=== PATIENT | male | born 1950 | race Caucasian/White ===

== ENCOUNTER 2017-03-04 21:36 | Inpatient (IN) | payer MEDICARE, OTHER ==
[~2017-03-04] VITALS: Ht 175.3 cm; Wt 79.2 kg
--- NOTE | 2017-03-04 21:36 | NUR ---
Arrived to ED to room 2A for possible tramadol overdosage.BIB paramedics. Pt is awake and lethargic.VS BP 90's/50's. HR 86, satting 98% RA, afebrile,
[2017-03-04] MEDS ORDERED: NALOXONE HCL 0.4 MG/ML AMPUL IV STA (21:39)
[2017-03-04] MEDS ORDERED: IV NORMAL SALINE 1000 ML BAG IV ONE ×3 (21:45→23:15)
[2017-03-04] MEDS ORDERED: NALOXONE HCL 0.4 MG/ML AMPUL ONE (21:50)
--- NOTE | 2017-03-04 22:22 | NUR ---
BP starting to go down, place pt in a trendelenburg position and recheck BP.Reinserted new IV, previous IV was not working properly, switched IV fluids to new IV LFA g 20.
[2017-03-04 22:23] LABS: CALCIUM 9.3 mg/dL (8.5-10.1); CARBON DIOXIDE 26 mmol/L (21-32); CHLORIDE 102 mmol/L (98-107); GFR 38 mL/min (>60); GLUCOSE 137 mg/dL (74-106); SODIUM SERUM 141 mmol/L (136-145); UREA NITROGEN, BLOOD 17 mg/dL (7-18)
[2017-03-04 22:24] LABS: CREATININE 1.8 mg/dL (0.6-1.3)
[2017-03-04 22:25] LABS: BASOPHILS # (AUTO) 0.1 K/uL (0.0-8.0); EOSINOPHILS # (AUTO) 0.1 K/uL (0.0-0.7); EOSINOPHILS % (AUTO) 0.9 % (0.0-7.0); HEMATOCRIT 54.1 % (40-50); HEMOGLOBIN 18.3 G/DL (14.0-18.0); LYMPHOCYTES % (AUTO) 7.3 % (20.5-51.5); MEAN CORPUSCULAR HEMOGLOBIN 30.4 UUG (27.0-31.0); MEAN CORPUSCULAR HGB CONC 34 g/dL (32.0-37.0); MONOCYTES # (AUTO) 0.9 K/UL (0.1-1.30); MONOCYTES % (AUTO) 6.4 % (0.0-11.0); NEUTROPHILS # (AUTO) 11.2 K/UL (1.8-8.9); NEUTROPHILS % (AUTO) 84.4 % (38.5-71.5); PLATELET COUNT (AUTO) 185 K/UL (150-450); RED BLOOD CELL COUNT(AUTO) 6.01 MIL/UL (4.7-6.1); RED CELL DISTRIBUTION WIDTH 12.6 % (11.5-14.5); WHITE BLOOD COUNT (AUTO) 13.3 K/UL (4.0-11.2)
[2017-03-04 22:26] LABS: ETHANOL < 3 MG/DL (0-0)
[2017-03-04] MEDS ORDERED: NALOXONE HCL 0.4 MG/ML AMPUL IV ONE ×3 (22:30→23:15)
--- NOTE | 2017-03-04 22:30 | NUR ---
Continue BP to be on the low side, MD is aware.
[2017-03-04 22:38] LABS: ALANINE AMINOTRANSFERASE 22 U/L (16-63); ALBUMIN 4.2 g/dL (3.4-5.0); ALKALINE PHOSPHATASE 73 U/L (50-136); ASPARTATE AMINOTRANSFERASE 18 U/L (15-37); BILIRUBIN,DIRECT 0.1 mg/dL (0.0-0.2); BILIRUBIN,TOTAL 0.4 mg/dL (0.2-1.0); TOTAL PROTEIN, SERUM 7.5 g/dL (6.4-8.2)
[2017-03-04 22:40] LABS: ACETAMINOPHEN < 2.0 ug/mL (10-30)
--- NOTE | 2017-03-04 22:40 | NUR ---
POISON CONTROL ID NO [id number].
[2017-03-04] MEDS ORDERED: NALOXONE 2 MG/2 ML SYRINGE ONE ×3 (22:47→23:26)
--- NOTE | 2017-03-04 23:20 | NUR ---
Intubated patient, pt was unresponsive, was snoring prior however Narcan was not taking effect, BP is going down continuously.Dopamine started with 5mcg/kg/min.Succinylcholine 100mg/IVP given as ordered.Bilateral soft restraints in place as ordered.
--- NOTE | 2017-03-04 23:20 | NUR ---
Indwelling olivera catheter in place as ordered.Output yellow pink tinge (possibly from trauma), good amount coming out.
[2017-03-04] MEDS: DOPamine IV DRIP 250 ML IV PRN (23:30)
--- NOTE | 2017-03-04 23:30 | NUR ---
Propofol administered started 10mcg/kg/min.
[2017-03-04] MEDS ORDERED: DOPamine IV DRIP 250 ML ONE (23:35)
--- NOTE | 2017-03-04 23:35 | NUR ---
Called to ED for intubation. Pt intubated by ED MD MAJANO with 7.5 ETT at approx. 23 cm at the lip. Pt subsequently placed on Viasys Martinez on settings of AC 16, VT 600, PEEP+5 and ODE9=213%. Pt to be monitored throughout the shift. BVM at bedside. No resp. distress noted at this time.
[2017-03-04] MEDS ORDERED: SUCCINYLCHOLINE CHLORIDE 200 MG/10 ML VIAL IV ONE (23:45)
--- NOTE | 2017-03-04 23:45 | NUR ---
NGT inserted , CXR done to validate ET and NGT placement.
--- NOTE | 2017-03-04 23:45 | NUR ---
Completed 3L of NS bolus with urinary output of 1800mls.
[2017-03-04] MEDS ORDERED: PROPOFOL 100 ML ONE (23:51)
[2017-03-05] VITALS (88 sets, daily range): BP systolic 83–151; BP diastolic 53–101
[2017-03-05] MEDS ORDERED: ALPR1TAB7 (00:08)
[2017-03-05] MEDS ORDERED: LISI10TA5 (00:08)
--- NOTE | 2017-03-05 00:10 | NUR ---
UNABLE TO GET ALL NAMES OF MEDS.SPOKE WITH FAMILY THEY WILL GET AND BRING IN.
[2017-03-05] MEDS ORDERED: PROPOFOL 100 ML IV ONE (00:24)
--- NOTE | 2017-03-05 00:30 | NUR ---
Wheeled pt to CT w/ tap and die maker technician and R with portable php lamp developer and mechanical ventilator. Monitored pt constantly.
[2017-03-05 00:58] LABS: THYROID STIMULATING HORMONE 6.254 mIU/mL (0.358-3.740)
[2017-03-05 00:58] LABS: *BILIRUBIN,URIN NEGATIVE (NEGATIVE); *BLOOD, URINE Trace-lysed (NEGATIVE); *CLARITY,URINE SLIGHTLY CLOUDY (CLEAR); *COLOR,URINE YELLOW (YELLOW); *KETONES,URINE 1+ (NEGATIVE); *PROTEIN,URINE 1+ (NEGATIVE); *UROBILINOGEN,URINE 0.2 E.U./dl (NORMAL); LEUKOCYTE ESTERASE ,URINE NEGATIVE (NEGATIVE); NITRITE, URINE NEGATIVE (NEGATIVE); PH,URINE 5.5 (5.0-8.0); UGLUCOSE NEGATIVE (NEGATIVE)
[2017-03-05 01:08] LABS: *AMPHETAMINE, URINE NEGATIVE (NEGATIVE); *BARBITURATE, URINE NEGATIVE (NEGATIVE); *CANNABINOID, URINE POSITIVE (NEGATIVE); *COCCAINE, URINE NEGATIVE (NEGATIVE); *OPIATE, URINE POSITIVE (NEGATIVE); *PHENCYCLIDINE SCREEN,URINE NEGATIVE (NEGATIVE); BACTERIA,URINE FEW /HPF (NONE SEEN); SQUAMOUS EPITHELIAL CELL,UR FEW /HPF (NONE SEEN)
[2017-03-05 01:09] LABS: URINE AMORPHOUS URATE PRESENT /HPF
--- NOTE | 2017-03-05 01:10 | NUR ---
Report given to GUSTAVO Machuca. Urinary output 1800mls via olivera catheter
--- NOTE | 2017-03-05 01:40 | NUR ---
Blood sugar 132mg/dl
[2017-03-05 01:46] LABS: ABG BASE EXCESS -1.3 mmol/L; ABG HCO3 21.4 mmol/L; ABG PCO2 31.5 mmHg (35.0-45.0); ABG PO2 440.8 mmHg (75.0-100.0); ABG SITE RIGHT RADIAL; COHb 0.6 % (0.5-1.5); MetHb 0.4 % (0.0-1.5); O2Hb 98.7 % (94.0-97.0); VENT MODE VENT - A/C; VT, ABG 600 mL
--- NOTE | 2017-03-05 01:55 | NUR ---
Transferred pt to CCU bed 3 via maureen with RT Case with portable director process improvement and portable oxygen. Continued on mechanical ventilator rate 16, TV 600, Fio2 100% initial and Peep 5.Saturation 100%.VS stable.Continued on Dopamine 5mcg/kg/min and Propofol 25mcg/kg/min.
[2017-03-05] MEDS ORDERED: LORAZEPAM 2 MG/1 ML VIAL IV PRN (02:00)
--- NOTE | 2017-03-05 02:07 | NUR ---
PT WITH 02 TRANSPORT FROM ER, WITH 100% AMBU BAG TO CCU #3 APPROX. 0145 , PT PLACED BACK ON LI VENT , WITH VENT SETTINGS, A/C 16, VT 600ML, 100%, PEEP 5, THEN TITRATE FIO2 TO 50% APPROX. @ 0200, BASED ON ABG RESULTS, PT IS ALSO SEDATED, ALL ALARMS OK, AMBU BAG AT BEDSIDE, WILL MONITOR CLOSELY. Marilu PRO RCP Addendum: 03/05/17 at 0211 by GAYATHRI PRO RT Amended: Links added.
--- NOTE | 2017-03-05 02:10 | NUR ---
Accompanied pt's significant other and friend to CCU.
--- NOTE | 2017-03-05 04:30 | NUR ---
REQUESTED BY , NOTIFIED POISON CONTROL: THEY DECLINED MORE NARCAN.
[2017-03-05] MEDS ORDERED: IV D5/ 0.9% NACL 1,000 ML IV PRN (05:00)
[2017-03-05 05:48] LABS: BASOPHILS % (AUTO) 0.3 % (0.0-2.0); EOSINOPHILS # (AUTO) 0.1 K/uL (0.0-0.7); EOSINOPHILS % (AUTO) 0.9 % (0.0-7.0); HEMATOCRIT 48.9 % (40-50); HEMOGLOBIN 17.1 G/DL (14.0-18.0); LYMPHOCYTES # (AUTO) 1.6 K/UL (0.8-4.8); MEAN CORPUSCULAR HEMOGLOBIN 31.2 UUG (27.0-31.0); MEAN CORPUSCULAR HGB CONC 35 g/dL (32.0-37.0); MEAN CORPUSCULAR VOLUME 89.3 FL (82.0-92.0); MONOCYTES # (AUTO) 0.4 K/UL (0.1-1.30); MONOCYTES % (AUTO) 3.8 % (0.0-11.0); NEUTROPHILS # (AUTO) 7.3 K/UL (1.8-8.9); PLATELET COUNT (AUTO) 192 K/UL (150-450); RED BLOOD CELL COUNT(AUTO) 5.48 MIL/UL (4.7-6.1); RED CELL DISTRIBUTION WIDTH 12.9 % (11.5-14.5); WHITE BLOOD COUNT (AUTO) 9.4 K/UL (4.0-11.2)
[2017-03-05 06:05] LABS: CALCIUM 8.9 mg/dL (8.5-10.1); CREATININE 1.2 mg/dL (0.6-1.3); MAGNESIUM 2.1 mg/dL (1.8-2.4); PHOSPHOROUS 3.2 mg/dL (2.5-4.9); POTASSIUM 3.7 mmol/L (3.5-5.1)
[2017-03-05 06:32] LABS: BAND % (MANUAL) 1 % (0-10); LYMPHOCYTES % (MANUAL) 13 % (20-40); MONOCYTES % (MANUAL) 8 % (2-10); NEUTROPHILS % (MANUAL) 78 % (42-75); PLATELET ESTIMATE ADEQUATE
--- NOTE | 2017-03-05 07:45 | NUR ---
A call from Poison control center and report given to Taylor, she recommended to get a CPK total. notified and lab ordered as required by poison control.
[2017-03-05] MEDS ORDERED: ACETAMINOPHEN 650 MG SUPP.RECT RC PRN (08:00)
[2017-03-05] MEDS: PROPOFOL 100 ML IV PRN ×2 (08:14→23:04)
[2017-03-05] MEDS: PIPERACILLIN/TAZOBACTAM/D5W 3.375 G in PREMIXED 1 EACH IV SCH ×3 (08:49→22:06)
[2017-03-05] MEDS: POTASSIUM CHLORIDE 20 MEQ in IV D5/ 0.9% NACL 1,000 ML IV PRN (08:51)
[2017-03-05] MEDS: PANTOPRAZOLE SODIUM 40 MG VIAL IV SCH (08:53)
[2017-03-05 09:11] LABS: ABG BASE EXCESS 1.1 mmol/L; ABG PCO2 26.9 mmHg (35.0-45.0); ABG PO2 122.3 mmHg (75.0-100.0); ABG SITE RIGHT RADIAL; ABG TOTAL HEMOGLOBIN 17.4 G/dL (13.5-18.0); COHb 0.9 % (0.5-1.5); MetHb 0.3 % (0.0-1.5); O2Hb 97.7 % (94.0-97.0); VENT MODE VENT - A/C; VT, ABG 600 mL
[2017-03-05] MEDS: LEVOFLOXACIN 500 MG/D5W 500 MG in PREMIXED 1 EACH IV SCH (09:23)
--- NOTE | 2017-03-05 13:33 | NUR ---
Dr. Mitchell at bedside examining patient and updating pt's partner who remains at bedside.
--- NOTE | 2017-03-05 13:50 | NUR ---
called earlier at bedside praying with pt's family who remain at bedside.
--- NOTE | 2017-03-05 14:00 | NUR ---
Dr. Good at bedside assessing patient, report given vent change orders received.
[2017-03-05] MEDS: DOPamine IV DRIP 250 ML IV PRN ×2 (14:27→23:07)
--- NOTE | 2017-03-05 14:30 | NUR ---
Vent setting changed to A/C 14, TV 500, Peep + 5. and keep saturations above 92%. as ordered by . Orders carried by RT Alas.
--- NOTE | 2017-03-05 15:42 | NUR ---
CHANGED VENT SETTINGS TO AC 14, Vt 500, +5, FIO2 40% PER MD ORDERS. TOLERATING VENT SETTINGS WELL WITH NO SOB NOTED. 7.5 ETT IS PATENT AND SECURED WITH ETT IRIZARRY LEFT SIDE APPROX 23 CM AT THE LIP. HAS MINIMAL AMOUNT OF WHITE THIN SECRETIONS. ORAL CARE DONE. HME CHANGED. ALARMS ARE ON AND AUDIBLE, BVM AT BEDSIDE. WILL CONTINUE TO MONITOR.
--- NOTE | 2017-03-05 19:28 | NUR ---
Pt rec'd on Martinez settings AC 14, VT 500, PEEP+5 and FIO2-40%. No resp. distress noted. 7.5 ETT is patent and secure a approx. 23cm at the left lip. Pt to be monitored throughout the shift and PRN SX. Oral care done. BVM at bedside. Martinez alarm parameters have been checked and remain audible.
[2017-03-06] VITALS (92 sets, daily range): BP systolic 77–172; BP diastolic 57–96
[2017-03-06] MEDS: POTASSIUM CHLORIDE 20 MEQ in IV D5/ 0.9% NACL 1,000 ML IV PRN ×2 (00:22→14:47)
--- NOTE | 2017-03-06 05:05 | NUR ---
accucheck noted as user error
[2017-03-06 05:13] LABS: BASOPHILS # (AUTO) 0.1 K/uL (0.0-8.0); BASOPHILS % (AUTO) 0.8 % (0.0-2.0); EOSINOPHILS # (AUTO) 0.2 K/uL (0.0-0.7); EOSINOPHILS % (AUTO) 2.3 % (0.0-7.0); HEMATOCRIT 47.3 % (40-50); HEMOGLOBIN 16.1 G/DL (14.0-18.0); LYMPHOCYTES # (AUTO) 1.2 K/UL (0.8-4.8); LYMPHOCYTES % (AUTO) 11.8 % (20.5-51.5); MEAN CORPUSCULAR HEMOGLOBIN 30.7 UUG (27.0-31.0); MEAN CORPUSCULAR HGB CONC 34 g/dL (32.0-37.0); MEAN CORPUSCULAR VOLUME 90.3 FL (82.0-92.0); MONOCYTES # (AUTO) 0.9 K/UL (0.1-1.30); MONOCYTES % (AUTO) 8.4 % (0.0-11.0); NEUTROPHILS # (AUTO) 7.9 K/UL (1.8-8.9); NEUTROPHILS % (AUTO) 76.7 % (38.5-71.5); PLATELET COUNT (AUTO) 167 K/UL (150-450); RED BLOOD CELL COUNT(AUTO) 5.23 MIL/UL (4.7-6.1); RED CELL DISTRIBUTION WIDTH 12.9 % (11.5-14.5); WHITE BLOOD COUNT (AUTO) 10.3 K/UL (4.0-11.2)
--- NOTE | 2017-03-06 05:18 | NUR ---
Patient remains on Martinez at this time with no changes made to the ventilator settings. No respiratory distress noted throughout the shift. Patient was routinely suctioned and was administered oral care. 7.5 ETT remains patent and secure at approx. 23cm now at the left lip. Resusc. bag is at bedside. Martinez alarm parameters have been checked and remain audible at this time.
[2017-03-06 05:28] LABS: BILIRUBIN,TOTAL 0.7 mg/dL (0.2-1.0); CALCIUM 8.2 mg/dL (8.5-10.1); CREATININE 1.2 mg/dL (0.6-1.3); MAGNESIUM 1.7 mg/dL (1.8-2.4); POTASSIUM 3.7 mmol/L (3.5-5.1); TOTAL PROTEIN, SERUM 6.1 g/dL (6.4-8.2)
[2017-03-06] MEDS: PIPERACILLIN/TAZOBACTAM/D5W 3.375 G in PREMIXED 1 EACH IV SCH ×3 (05:33→21:41)
[2017-03-06] MEDS: PANTOPRAZOLE SODIUM 40 MG VIAL IV SCH (06:08)
--- NOTE | 2017-03-06 07:38 | NUR ---
PATIENT RECEIVED ON CONTINUOUS MECHANICAL VENTILATION WITH ETT PROPERLY SECURED AND INTACT. AIRWAY PATENT. PATIENT TOLERATING PRESCRIBED VENTILATOR SETTINGS FINE SHOWING NO EVIDENCE OF RESPIRATORY DISTRESS. BREATH SOUNDS RHONCHI. PRN ENDOTRACHEAL SUCTIONING PERFORMED AND HAD MODERATE AMOUNT OF OFF WHITE YELLOWISH SEMI THICK SECRETIONS. PATIENT POSITIONED SEMI ANGLIN WITH HEAD OF THE BED ELEVATED 35-45 DEGREE ANGLE. VENT ALARMS SET,AUDIBLE, AND WORKING. VENT PLUGGED INTO RED OUTLET. PT APPEARS COMFORTABLE. ORAL CARE DONE.
[2017-03-06] MEDS: DOPamine IV DRIP 250 ML IV PRN ×2 (08:29→17:56)
[2017-03-06] MEDS: PROPOFOL 100 ML IV PRN ×2 (08:30→18:02)
[2017-03-06] MEDS: LEVOFLOXACIN 500 MG/D5W 500 MG in PREMIXED 1 EACH IV SCH (09:00)
--- NOTE | 2017-03-06 11:25 | NUR ---
seen by dr sheffield. orders received. Addendum: 03/06/17 at 1125 by ANUM HARDEN RN Amended: Links added.
[2017-03-06] MEDS: MAGNESIUM SULFATE/D5W 100 ML IV SCH ×2 (12:40→13:56)
[2017-03-06] MEDS: MORPHINE SULFATE 2 MG/1 ML DISP.SYRIN IV PRN (12:42)
[2017-03-06] MEDS: ENOXAPARIN SODIUM 40 MG/0.4 ML DISP.SYRIN SQ SCH (12:52)
--- NOTE | 2017-03-06 13:00 | NUR ---
magnesium 1.7. replaced qith 2 gms of magnesium sulfate Addendum: 03/06/17 at 1 by ANUM HARDEN RN Amended: Links added.
--- NOTE | 2017-03-06 18:37 | NUR ---
seen by dr shukla. orders received, Addendum: 03/06/17 at 1837 by ANUM HARDEN RN Amended: Links added.
--- NOTE | 2017-03-06 19:00 | NUR ---
Report received from GUSTAVO Costa Addendum: 03/06/17 at 2020 by THEODORA HENRY RN cher lazcano
--- NOTE | 2017-03-06 19:00 | NUR ---
Received report from GUSTAVO Costa
--- NOTE | 2017-03-06 19:10 | NUR ---
Pt received on Continuous mechanical ventilation via 7.5 ETT secured at 23cm lip line. ETT on Left side of mouth. [place] Fast is in place. Good skin integrity noted to area of [place] Fast placement. Pt is on Martinez vent with ordered settings of A/C-12, VT-500, PEEP+5, FIO2-40%. Pt tolerating vent settings well. SpO2-100% No signs or symptoms of respiratory distress noted. Sxn'd and lavaged, small amts of dark secretions. Vent alarm parameters checked, on and audible. Vent plugged into red emergency outlet. Bag/valve/mask at bedside. HME changed. Oral care done. ETT moved to Right side of mouth. Will continue to monitor
--- NOTE | 2017-03-06 20:00 | NUR ---
Assessment done, remained on mechanical ventilator tv 500, Fi02 40% peep of 5. For CPAP tomorrow am.Sedated on Propofol 20mcg/kg/min.NSR on court monitor, Skin is intact, prone for pressure ulcer, on 1st step mattress, turned and repositioned, Morgan catheter in place as well NGT, remained NPO. IV fluids: D5 NS w/ 20 KCL at 80 mls/hr running via central line at Rt IJ.DVT pumps running and off load bilateral foot at all times.Continue monitor.
--- NOTE | 2017-03-06 22:00 | NUR ---
Antibiotic given as prescribed.VS stable.
[2017-03-07] VITALS (66 sets, daily range): BP systolic 80–157; BP diastolic 53–105
[2017-03-07] MEDS: PROPOFOL 100 ML IV PRN (03:15)
[2017-03-07] MEDS: POTASSIUM CHLORIDE 20 MEQ in IV D5/ 0.9% NACL 1,000 ML IV PRN ×2 (03:40→19:00)
[2017-03-07 05:30] LABS: BASOPHILS % (AUTO) 0.3 % (0.0-2.0); EOSINOPHILS # (AUTO) 0.4 K/uL (0.0-0.7); EOSINOPHILS % (AUTO) 4.1 % (0.0-7.0); HEMATOCRIT 43.9 % (40-50); HEMOGLOBIN 15.2 G/DL (14.0-18.0); LYMPHOCYTES % (AUTO) 10.8 % (20.5-51.5); MEAN CORPUSCULAR HGB CONC 35 g/dL (32.0-37.0); MEAN CORPUSCULAR VOLUME 89.7 FL (82.0-92.0); MONOCYTES # (AUTO) 0.7 K/UL (0.1-1.30); MONOCYTES % (AUTO) 8.2 % (0.0-11.0); NEUTROPHILS # (AUTO) 6.8 K/UL (1.8-8.9); NEUTROPHILS % (AUTO) 76.6 % (38.5-71.5); PLATELET COUNT (AUTO) 134 K/UL (150-450); RED CELL DISTRIBUTION WIDTH 13.1 % (11.5-14.5); WHITE BLOOD COUNT (AUTO) 8.9 K/UL (4.0-11.2)
[2017-03-07 05:31] LABS: CALCIUM 8.2 mg/dL (8.5-10.1); CREATININE 0.9 mg/dL (0.6-1.3); MAGNESIUM 1.7 mg/dL (1.8-2.4); POTASSIUM 3.5 mmol/L (3.5-5.1)
[2017-03-07] MEDS: PIPERACILLIN/TAZOBACTAM/D5W 3.375 G in PREMIXED 1 EACH IV SCH ×3 (05:36→21:55)
--- NOTE | 2017-03-07 06:00 | NUR ---
Central line dressing changed.
--- NOTE | 2017-03-07 06:00 | NUR ---
Overall pt has been intermittently having hypotensive issues as being weaned off from dopamine on an increments of .5mcg-1 mcg/min. Currently on 7 mcg/min. Propofol is stabled at 15mcg/min. Pt remained sedated.Turned and reposition per hospital protocol.
[2017-03-07] MEDS: PANTOPRAZOLE SODIUM 40 MG VIAL IV SCH (06:11)
--- NOTE | 2017-03-07 07:00 | NUR ---
report received from Gopi Addendum: 03/07/17 at 1644 by ANUM HARDEN RN Amended: Links added.
--- NOTE | 2017-03-07 07:00 | NUR ---
Report to GUSTAVO Costa
[2017-03-07] MEDS ORDERED: NORMAL SALINE FLUSH 10 ML DISP.SYRIN IV PRN (07:45)
[2017-03-07] MEDS: LEVOFLOXACIN 500 MG/D5W 500 MG in PREMIXED 1 EACH IV SCH (07:47)
--- NOTE | 2017-03-07 08:00 | NUR ---
placed on sedation vacation. placed on cpap psv 8 fio2 40%. remains on dopamine drip . IV fluid infusing at 80ml/hr. PICC line intact. all ports flushed with saline and open Addendum: 03/07/17 at 1640 by ANUM HARDEN RN Amended: Links added.
--- NOTE | 2017-03-07 08:00 | NUR ---
placed on sedation vacation. placed on cpap psv 8 fio2 40%. remains on dopamine drip . IV fluid infusing at 80ml/hr Addendum: 03/07/17 at 1640 by ANUM HARDEN RN Amended: Links added.
[2017-03-07] MEDS: DOPamine IV DRIP 250 ML IV PRN (08:53)
[2017-03-07] MEDS: MAGNESIUM SULFATE/D5W 100 ML IV SCH ×2 (09:10→10:10)
--- NOTE | 2017-03-07 09:10 | NUR ---
magnesium sulfate total 2 gms started for serum level of 1.7 Addendum: 03/07/17 at 0932 by ANUM HARDEN RN Amended: Links added.
[2017-03-07] MEDS: MORPHINE SULFATE 2 MG/1 ML DISP.SYRIN IV PRN ×2 (09:11→15:46)
--- NOTE | 2017-03-07 09:11 | NUR ---
medicated for generalized discomfort.patient restless and has bilateral wrist restraints Addendum: 03/07/17 at 1631 by ANUM HARDEN RN Amended: Links added. Addendum: 03/07/17 at 1633 by ANUM HARDEN RN Amended: Links added.
--- NOTE | 2017-03-07 09:30 | NUR ---
Resident was endorsed on Continuous mechanical ventilation via 7.5 ETT secured at 23cm lip line. [place] Fast is in place, good skin integrity noted to area of placement. Pt is on Martinez vent with ordered settings of A/C-12, VT-500, PEEP+5, FIO2-40%. Pt tolerating vent settings well. No signs or symptoms of respiratory distress noted. Changed to CPAP pressure support of 8 with 40% Fio2, RN Julissa aware. No complication noted. Vent alarm parameters checked, on and audible. Vent plugged into red emergency outlet. Bag/valve/mask at bedside. HME changed. Oral care rendered. Will continue to monitor
--- NOTE | 2017-03-07 10:00 | NUR ---
abgs drawn while on cpap psv8 and propofol at 15mcg/kg.min Addendum: 03/07/17 at 1636 by ANUM HARDEN RN Amended: Links added. Addendum: 03/07/17 at 1640 by ANUM HARDEN RN Amended: Links added.
[2017-03-07 10:25] LABS: ABG BASE EXCESS -3.3 mmol/L; ABG HCO3 20.3 mmol/L; ABG PCO2 32.7 mmHg (35.0-45.0); ABG PH 7.411 (7.350-7.450); ABG PO2 130.9 mmHg (75.0-100.0); ABG SITE LEFT RADIAL; ABG TOTAL HEMOGLOBIN 15.1 G/dL (13.5-18.0); COHb 1.3 % (0.5-1.5); MetHb 0.3 % (0.0-1.5); O2Hb 97.5 % (94.0-97.0); VENT MODE CPAP
--- NOTE | 2017-03-07 10:35 | NUR ---
seen by dr clark orders received Addendum: 03/07/17 at 1629 by ANUM HARDEN RN Amended: Clara added. Addendum: 03/07/17 at 1631 by ANUM HARDEN RN Amended: Clara added. Addendum: 03/07/17 at 1633 by ANUM HARDEN RN Amended: Links added.
[2017-03-07] MEDS ORDERED: DC PROPOFOL ONCE EXTUBATED XX PRN (10:40)
--- NOTE | 2017-03-07 10:40 | NUR ---
Patient was tolerating CPAP very well. ABG results indicative of successful weaning. Patient extubated and placed on 5LpmO2 via simple mask per MD Jansen, with the assistance of Fermin GLORIA. Spo2 remains at 100%. Julissa CHEN informed. Will titrate as needed. No signs or symptoms of respiratory distress noted. Ambu bag at bedside. Will continue to monitor.
[2017-03-07] MEDS ORDERED: ALBUTEROL SULFATE 2.5 MG/3 ML NEBU NEB PRN (10:45)
--- NOTE | 2017-03-07 10:45 | NUR ---
extubated and placed on 5l mask per RT Fermin and RT Sandrita. Patient was suctioned first prior to extubation. Patient is restless, not able to follow commands. wrist restraints. propofol dcd prior to extubation. remains on dopamine drip to keep sbp >90 Addendum: 03/07/17 at 1239 by ANUM HARDEN RN Amended: Links added.
[2017-03-07] MEDS: POTASSIUM CHLORIDE 50 ML IV SCH ×2 (11:45→12:12)
--- NOTE | 2017-03-07 11:50 | NUR ---
A Call from Poison Control, spoke with MR. Ibarra questions answered.
[2017-03-07] MEDS: ENOXAPARIN SODIUM 40 MG/0.4 ML DISP.SYRIN SQ SCH (12:10)
--- NOTE | 2017-03-07 12:40 | NUR ---
seen by dr andonyan. md filomena jaimes is covering patient from today Addendum: 03/07/17 at 1628 by ANUM HARDEN RN Amended: Links added. Addendum: 03/07/17 at 1629 by ANUM HARDEN RN Amended: Links added. Addendum: 03/07/17 at 1631 by ANUM HARDEN RN Amended: Clara added. Addendum: 03/07/17 at 1633 by ANUM HARDEN RN Amended: Links added.
[2017-03-07] MEDS: LORAZEPAM 2 MG/1 ML VIAL IV PRN (12:48)
--- NOTE | 2017-03-07 12:48 | NUR ---
medicated for restlessness Addendum: 03/07/17 at 1635 by ANUM HARDEN RN Amended: Clara added. Addendum: 03/07/17 at 1636 by ANUM HARDEN RN Amended: Links added. Addendum: 03/07/17 at 1640 by ANUM HARDEN RN Amended: Links added.
--- NOTE | 2017-03-07 13:00 | NUR ---
seen by dr Hummel. orders received. Addendum: 03/07/17 at 1627 by ANUM HARDEN RN Amended: Clara added. Addendum: 03/07/17 at 1628 by ANUM HARDEN RN Amended: Links added. Addendum: 03/07/17 at 1629 by ANUM HARDEN RN Amended: Links added. Addendum: 03/07/17 at 1631 by ANUM HARDEN RN Amended: Links added. Addendum: 03/07/17 at 1633 by ANUM HARDEN RN Amended: Links added.
--- NOTE | 2017-03-07 15:45 | NUR ---
medicated for generalized discomfort. now on bilateral ankle restraints Addendum: 03/07/17 at 1633 by ANUM HARDEN RN Amended: Links added.
[2017-03-07] MEDS: NORMAL SALINE FLUSH 10 ML DISP.SYRIN IV SCH ×2 (15:47→21:55)
--- NOTE | 2017-03-07 19:10 | NUR ---
MAGALYS received from Anum CHEN. Addendum: 03/07/17 at 1933 by ANUM HARDEN RN Amended: Links added.
--- NOTE | 2017-03-07 19:30 | NUR ---
Report received. Patient arouses to name, doesn't follow commands. Speech garbled. MARINA espana. With soft restraints to wrists and legs for safety. Monitored closely. O2 2L NC post extubation. Sat above 94%. NAD noted. Addendum: 03/08/17 at 0153 by SARIKA SAINI RN Amended: Links added. Addendum: 03/08/17 at 0156 by SARIKA SAINI RN Amended: Links added.
--- NOTE | 2017-03-07 20:30 | NUR ---
Patient's friends visited. There were times that patient's words are understandable and patient was emotional according to friends. VS stable. Addendum: 03/08/17 at 0159 by SARIKA SAINI RN Amended: Links added. Addendum: 03/08/17 at 0201 by SARIKA SAINI RN Amended: Links added.
[2017-03-08] VITALS (16 sets, daily range): BP systolic 129–175; BP diastolic 60–99
--- NOTE | 2017-03-08 | NUR ---
Am bath given. Patient able to tell RN his name but no answers to other questions. Moves all extremities well. Addendum: 03/08/17 at 0201 by SARIKA SAINI RN Amended: Links added.
--- NOTE | 2017-03-08 05:00 | NUR ---
Patient extremely restless, legs over rail despite 4 point soft restraints. BP 170's systole. Medicated with Ativan IV. Addendum: 03/08/17 at 0621 by SARIKA SAINI RN Amended: Links added.
[2017-03-08] MEDS: NORMAL SALINE FLUSH 10 ML DISP.SYRIN IV SCH ×3 (05:03→22:12)
[2017-03-08] MEDS: LORAZEPAM 2 MG/1 ML VIAL IV PRN (05:03)
[2017-03-08] MEDS: PIPERACILLIN/TAZOBACTAM/D5W 3.375 G in PREMIXED 1 EACH IV SCH ×3 (05:15→21:12)
[2017-03-08 05:35] LABS: CALCIUM 8.4 mg/dL (8.5-10.1); CREATININE 0.9 mg/dL (0.6-1.3); MAGNESIUM 1.5 mg/dL (1.8-2.4); PHOSPHOROUS 2.5 mg/dL (2.5-4.9); POTASSIUM 3.8 mmol/L (3.5-5.1)
--- NOTE | 2017-03-08 06:00 | NUR ---
Still mildly restless on and off after Ativan.
[2017-03-08 06:12] LABS: BASOPHILS % (AUTO) 0.3 % (0.0-2.0); EOSINOPHILS # (AUTO) 0.4 K/uL (0.0-0.7); EOSINOPHILS % (AUTO) 6.6 % (0.0-7.0); HEMATOCRIT 40.7 % (40-50); HEMOGLOBIN 14.4 G/DL (14.0-18.0); LYMPHOCYTES # (AUTO) 1.4 K/UL (0.8-4.8); LYMPHOCYTES % (AUTO) 21.2 % (20.5-51.5); MEAN CORPUSCULAR HEMOGLOBIN 31.7 UUG (27.0-31.0); MEAN CORPUSCULAR HGB CONC 35 g/dL (32.0-37.0); MEAN CORPUSCULAR VOLUME 89.7 FL (82.0-92.0); MONOCYTES # (AUTO) 0.6 K/UL (0.1-1.30); MONOCYTES % (AUTO) 9.2 % (0.0-11.0); NEUTROPHILS # (AUTO) 4.1 K/UL (1.8-8.9); NEUTROPHILS % (AUTO) 62.7 % (38.5-71.5); PLATELET COUNT (AUTO) 118 K/UL (150-450); RED BLOOD CELL COUNT(AUTO) 4.54 MIL/UL (4.7-6.1); RED CELL DISTRIBUTION WIDTH 12.7 % (11.5-14.5); WHITE BLOOD COUNT (AUTO) 6.5 K/UL (4.0-11.2)
[2017-03-08] MEDS: POTASSIUM CHLORIDE 20 MEQ in IV D5/ 0.9% NACL 1,000 ML IV PRN (06:38)
[2017-03-08] MEDS: PANTOPRAZOLE SODIUM 40 MG VIAL IV SCH (06:38)
--- NOTE | 2017-03-08 07:30 | NUR ---
RECIEVED LYING IN BED, ALERT, ORIENTED TO HIS NAME ONLY. PT IS A LITTLE RESTLESS AND AGITATED. ON SOFT WRIST RESTRAINTS FOR SAFETY. ALL EXTREMETIES ARE MILDLY WEAK. HR-SR . NSBP NORMAL. MAIN IVF D51/2 NS WITH 20MEQ KCL AT 80ML/HR VIA RIGHT IJ. INFUSING WELL.
--- NOTE | 2017-03-08 07:45 | NUR ---
Up on the bedpan. Had a smear of yellow stools; cleaned. NAD noted.
[2017-03-08 09:10] LABS: ABG BASE EXCESS 0.1 mmol/L; ABG HCO3 24.7 mmol/L; ABG PCO2 40.1 mmHg (35.0-45.0); ABG PH 7.408 (7.350-7.450); ABG PO2 96.3 mmHg (75.0-100.0); ABG SITE RIGHT RADIAL; ABG TOTAL HEMOGLOBIN 14.6 G/dL (13.5-18.0); COHb 1.8 % (0.5-1.5); MetHb 0.1 % (0.0-1.5); O2Hb 96.2 % (94.0-97.0); VENT MODE Nasal Cannula
--- NOTE | 2017-03-08 09:30 | NUR ---
SEEN AND EXAMINED BY DR LARA WITH NEW ORDERS. DOWN GRADED TO MEDSURG.
[2017-03-08] MEDS: MAGNESIUM SULFATE/D5W 100 ML IV SCH ×4 (10:51→14:46)
[2017-03-08] MEDS: ENOXAPARIN SODIUM 40 MG/0.4 ML DISP.SYRIN SQ SCH (11:25)
--- NOTE | 2017-03-08 11:30 | NUR ---
SEEN AND EXAMINED BY THE PSYCHIATRIST MD FOR CONSULT. WITH NEW ORDERS.
--- NOTE | 2017-03-08 12:30 | NUR ---
NO APPARENT DISTRESS NOTED. SEEN AND EXAMINED BY DR SAWYER , NO ORDERS. SISTER AT THE BEDSIDE. AFEBRILE.
[2017-03-08] MEDS: risperiDONE-M 0.5 MG TAB.RAPDIS PO SCH ×2 (13:55→22:13)
--- NOTE | 2017-03-08 15:00 | NUR ---
TRANSFERRED TO 2ND FLOOR ROOM 226 WITH A SITTER VIA BED. REPORT GIVEN TO KAITLIN HEBERT. FAMILY AWARE OF THE TRANSFER. CONDITION IS STABLE.
--- NOTE | 2017-03-08 15:51 | NUR ---
66 year old male received from ccu via bed in stable condition.v/s are stable.sitter at bed side.
--- NOTE | 2017-03-08 20:00 | NUR ---
RECEIVED PATIENT ASLEEP IN BED. EASILY AROUSABLE. A/O X 1-2 AT TIMES. NEEDS REDIRECTION. PATIENT IS NPO ORDERED. SITTER AT BEDSIDE FOR SAFETY AND FREQUENT MONITORING. F/C INTACT AND DRAINING WELL. PICC LINE NOTED TO RIGHT JUGULAR, INTACT WITH IVF INFUSING WELL. NO S/S OF PAIN OR DISCOMFORT, NO FACIAL GRIMACE NOTED. NO S/S OF PAIN OR DISCOMFORT. PATIENT ON AIR MATTRESS. ALL NEEDS ATTENDED. WILL CONTINUE TO MONITOR.
[2017-03-09] MEDS: POTASSIUM CHLORIDE 20 MEQ in IV D5/ 0.9% NACL 1,000 ML IV PRN (00:45)
[2017-03-09] MEDS: PIPERACILLIN/TAZOBACTAM/D5W 3.375 G in PREMIXED 1 EACH IV SCH ×3 (05:48→21:45)
[2017-03-09 05:49] VITALS: BP 118/88
[2017-03-09] MEDS: NORMAL SALINE FLUSH 10 ML DISP.SYRIN IV SCH ×3 (06:00→21:45)
[2017-03-09] MEDS: PANTOPRAZOLE SODIUM 40 MG VIAL IV SCH (06:21)
--- NOTE | 2017-03-09 06:29 | NUR ---
PATIENT ASLEEP IN BED. SLEPT WELL THROUGHOUT THE NIGHT. SITTER AT BEDSIDE. VSS. KEPT NPO ORDERED. BED ALARM ON. CALL LIGHT IN REACH. ALL NEEDS ATTENDED. WILL CONTINUE TO MONITOR.
[2017-03-09 07:06] LABS: BASOPHILS % (AUTO) 0.7 % (0.0-2.0); EOSINOPHILS # (AUTO) 0.4 K/uL (0.0-0.7); EOSINOPHILS % (AUTO) 8.2 % (0.0-7.0); HEMATOCRIT 43.9 % (40-50); HEMOGLOBIN 14.9 G/DL (14.0-18.0); LYMPHOCYTES # (AUTO) 1.2 K/UL (0.8-4.8); LYMPHOCYTES % (AUTO) 23.5 % (20.5-51.5); MEAN CORPUSCULAR HEMOGLOBIN 30.3 UUG (27.0-31.0); MEAN CORPUSCULAR HGB CONC 34 g/dL (32.0-37.0); MEAN CORPUSCULAR VOLUME 89.4 FL (82.0-92.0); MONOCYTES # (AUTO) 0.5 K/UL (0.1-1.30); MONOCYTES % (AUTO) 9.7 % (0.0-11.0); NEUTROPHILS % (AUTO) 57.9 % (38.5-71.5); PLATELET COUNT (AUTO) 146 K/UL (150-450); RED BLOOD CELL COUNT(AUTO) 4.91 MIL/UL (4.7-6.1); RED CELL DISTRIBUTION WIDTH 12.2 % (11.5-14.5); WHITE BLOOD COUNT (AUTO) 5.1 K/UL (4.0-11.2)
[2017-03-09 07:34] LABS: CALCIUM 8.7 mg/dL (8.5-10.1); CREATININE 0.9 mg/dL (0.6-1.3); MAGNESIUM 1.7 mg/dL (1.8-2.4); POTASSIUM 3.9 mmol/L (3.5-5.1)
--- NOTE | 2017-03-09 07:38 | NUR ---
PT RECEIVED IN BED SLEEPING ,SITTER AT BED SIDE.
[2017-03-09] MEDS: risperiDONE-M 0.5 MG TAB.RAPDIS PO SCH (08:07)
[2017-03-09] MEDS: ENOXAPARIN SODIUM 40 MG/0.4 ML DISP.SYRIN SQ SCH (11:45)
[2017-03-09 11:46] VITALS: BP 150/99
[2017-03-09] MEDS: MAGNESIUM SULFATE/D5W 100 ML IV SCH ×2 (14:40→15:10)
[2017-03-09] MEDS ORDERED: risperiDONE-M 0.5 MG TAB.RAPDIS PO STA (15:38)
[2017-03-09 16:26] VITALS: BP 100/66
[2017-03-09] MEDS ORDERED: RISP0.5T8 PO (16:48)
--- NOTE | 2017-03-09 18:08 | NUR ---
Dr. Hummel stated that the patient is medically cleared. Dr. Staples is not psychiatrically clearing the patient and she feels that he will need to go to [facility]. Bladimir from [facility] [ ] tried to call [employer] but could not get authorization. This agency recruiter left a message for both Mario [ ] and Abby [ ] from [employer]. Spoke to Jolene Langston After-hours [ ] and explained to her the need for authorization. She stated that she will contact their CM, Gena. Gena [ ] called back and stated that the patient's psychiatric benefits is carved out to [facility] [ ]. Called the number three times and it stated to call back during business hours. Called Gena once again but she is not able to provide an alternate number nor authorization. She stated that they will have to follow-up tomorrow morning. Updated Dr. Hummel on the situation and her nurse, Roseann.
--- NOTE | 2017-03-09 19:30 | NUR ---
RECEIVED PT IN BED AWAKE, IN NO ACUTE SIGNS OF DISTRESS. SITTER AT BEDSIDE, PARTNER WAS ALSO AT BEDSIDE. R JUGULAR PICC LINE INTACT. DENIES ANY SI. SAFETY OBSERVED.
[2017-03-09 20:00] VITALS: BP 98/61
[2017-03-09] MEDS: MORPHINE SULFATE 2 MG/1 ML DISP.SYRIN IV PRN (20:19)
[2017-03-09] MEDS ORDERED: risperiDONE-M 0.5 MG TAB.RAPDIS PO SCH (21:00)
--- NOTE | 2017-03-09 21:00 | NUR ---
PT WAS GIVEN WITH MS 2MG IV FOR C/O BURNING PAIN ON PENIS, PT STATED WITH RELIEF.
--- NOTE | 2017-03-09 23:45 | NUR ---
[facility] INTA[facility] WAS HERE, PT WILL BE TRANSFERRED TO [facility]- 72 HOUR HOLD. DX: PSYSCHOSIS UNDER DR. GARCIA.
--- NOTE | 2017-03-10 00:05 | NUR ---
R JUGULAR PICC LINE REMOVED, NO BLEEDING NOTED. LANDAVERDE REMOVED EMPTIED 850ML YELLOW URINE. REPORT GIVEN TO KAITLIN DENIS. TRANSFERRED TO [facility] TO RM 137A VIA WHEELCHAIR .
[2017-03-10] MEDS ORDERED: ENOX40DI SQ (06:13)
[2017-03-10] MEDS ORDERED: NORM2DIS4 IVF ×2 (06:13)
[2017-03-10] MEDS ORDERED: PANT40TA4 IV (06:13)
[2017-03-10] MEDS ORDERED: ALBU2.5V7 IH (06:13)
[2017-03-10] MEDS ORDERED: [UNRECOGNIZED DRUG - CODE] PO (06:13)
[2017-03-10] MEDS ORDERED: PIPE3.376 IV (06:13)
[2017-03-10] MEDS ORDERED: LORA1TAB IV (06:13)
[2017-03-10] MEDS ORDERED: MORP2SYR3 IV (06:13)
[2017-03-10] MEDS ORDERED: ALBU2.5V13 NEB (06:13)
== END 2017-03-09 23:56 | DRG 917 ==
LOC: EDBD 21:39 → ER 21:39 → CCU 03-05 01:17 → TELE 03-08 15:43 → MED 03-08 15:58
PROVIDERS: ADMIT Internal Medicine; ATTEND Internal Medicine
PROC: 5A1945Z Respiratory Ventilation, 24-96 Consecutive Hours (ICD-10-PCS; principal; 2017-03-05)
PROC: 0BH17EZ Insertion of Endotracheal Airway into Trachea, Via Natural or Artificial Opening (ICD-10-PCS; 2017-03-05)
PROC: 02HV33Z Insertion of Infusion Device into Superior Vena Cava, Percutaneous Approach (ICD-10-PCS; 2017-03-05)
PROC: B548ZZA Ultrasonography of Superior Vena Cava, Guidance (ICD-10-PCS; 2017-03-05)
DX: T40.4X2A Poisoning by other synthetic narcotics, intentional self-harm, initial encounter (principal); G92 Toxic encephalopathy; J96.01 Acute respiratory failure with hypoxia; N17.0 Acute kidney failure with tubular necrosis; R57.1 Hypovolemic shock; F32.3 Major depressive disorder, single episode, severe with psychotic features; D68.9 Coagulation defect, unspecified; Y92.009 Unspecified place in unspecified non-institutional (private) residence as the place of occurrence of the external cause; I12.9 Hypertensive chronic kidney disease with stage 1 through stage 4 chronic kidney disease, or unspecified chronic kidney disease; N18.9 Chronic kidney disease, unspecified; D72.829 Elevated white blood cell count, unspecified; E03.9 Hypothyroidism, unspecified; E78.5 Hyperlipidemia, unspecified; E83.42 Hypomagnesemia; R73.9 Hyperglycemia, unspecified; F29 Unspecified psychosis not due to a substance or known physiological condition; T42.4X2A Poisoning by benzodiazepines, intentional self-harm, initial encounter
CPT/HCPCS: 36415; 36556; 36600; 70030-TC; 70450; 71010; 80307; 83735; 84100; 84443; 85025; 85730; 87070; 92610; 93005; 93307; 94002; 94003; 94664; 97001; C1751; C1758; C9113; G0480-TC; G6040-TC; J1265; J1650; J1956; J2060; J2270; J2310; J2543; J3475; J3480; J3490; J7030; J7042

== ENCOUNTER 2017-03-10 00:18 | Inpatient (IN) | payer OTHER ==
[~2017-03-10] VITALS: Ht 172.7 cm; Wt 81.2 kg
[~2017-03-10 00:18] MED LIST: ALPR1TAB7; LISI10TA5; RISP0.5T8 PO
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
--- NOTE | 2017-03-10 01:45 | NUR ---
pt was at the nurses station, in a wheel chair, when he got up abruptly, and fell backwards, onto his buttock area. pt denies any pain or injury. able to do full range of motion, with out any problem. he was placed in the domenic chair, for closer safety monitoring. Dr Alice Martin (covering for Dr Hummel) was paged. awaiting call back.
--- NOTE | 2017-03-10 02:15 | NUR ---
assisted to bed.
[2017-03-10] MEDS ORDERED: MAGNESIUM HYDROXIDE 30 ML LIQUID UDC PO PRN (02:30)
[2017-03-10] MEDS ORDERED: TEMAZEPAM 7.5 MG CAPSULE PO PRN (02:30)
[2017-03-10] MEDS ORDERED: MAG HYDROX/AL HYDROX/SIMETH 30 ML LIQUID UDC PO PRN (02:30)
[2017-03-10] MEDS ORDERED: ACETAMINOPHEN 325 MG TABLET PO PRN (02:30)
[2017-03-10] MEDS ORDERED: LORAZEPAM 0.5 MG TABLET PO PRN (02:30)
--- NOTE | 2017-03-10 02:30 | NUR ---
appears to be asleep. no distress noted.
--- NOTE | 2017-03-10 06:00 | NUR ---
slept 4 hours. assisted with AM care, and shower. currently up in domenic chair. no distress noted.
[2017-03-10] MEDS ORDERED: PIPE3.376 IV (06:13)
[2017-03-10] MEDS ORDERED: [UNRECOGNIZED DRUG - CODE] PO (06:13)
[2017-03-10] MEDS ORDERED: ENOX40DI SQ (06:13)
[2017-03-10] MEDS ORDERED: ALBU2.5V13 NEB (06:13)
[2017-03-10] MEDS ORDERED: ALBU2.5V7 IH (06:13)
[2017-03-10] MEDS ORDERED: MORP2SYR3 IV (06:13)
[2017-03-10] MEDS ORDERED: PANT40TA4 IV (06:13)
[2017-03-10] MEDS ORDERED: NORM2DIS4 IVF ×2 (06:13)
[2017-03-10] MEDS ORDERED: LORA1TAB IV (06:13)
--- NOTE | 2017-03-10 07:14 | NUR ---
DR WADE BLOOD BANK CREDIT CLERK MADE AWARE OF PATIENT FALL, MD MADE AWARE NO INJURY TO PATIENT, VITAL SIGNS STABLE. NO FURTHER ORDERS GIVEN. WILL CONTINUE TO MONITOR FOR SAFETY.
[2017-03-10 07:30] VITALS: BP 143/92
--- NOTE | 2017-03-10 10:49 | NUR ---
GPS/RN- DR WILKINSON NOTIFIED OF CONSULT. SHE WILL BE IN TO SEE PATIENT TODAY.
--- NOTE | 2017-03-10 11:52 | NUR ---
Faxed the patient's clinical reviews to MORRIS Landon from [facility] [ ; ], and she called back and provided Auth# [id number]. She authorized from 03/10/17 until 03/13/17. Updated Kacey CACERES.
[2017-03-10] MEDS: DIVALPROEX SPRINKLE 125 MG CAP.SPRINK PO SCH ×2 (12:39→20:40)
[2017-03-10] MEDS: risperiDONE 0.5 MG TABLET PO SCH ×3 (12:40→17:43)
[2017-03-10] MEDS: BENZTROPINE MESYLATE 1 MG TABLET PO SCH ×2 (12:40→17:43)
[2017-03-10 15:00] VITALS: BP 132/86
--- NOTE | 2017-03-10 15:58 | NUR ---
Initial discharge instrucitons:Pt resides at home with his roommate,Anil [[id number] [address],[place],[address]].Per pt,he would like to return home upon discharge.Per pt's sister,Faith she would like the pt to return home as well.QUINTIN duncan speak with pt,family,and MD regarding appropriate discharge plans.QUINTIN will form a safe and proper discharge.
[2017-03-10] MEDS ORDERED: ALBUTEROL SULFATE 2.5 MG/3 ML NEBU IH PRN (16:30)
[2017-03-10] MEDS ORDERED: ALBUTEROL SULFATE 2.5 MG/ 0.5 ML NEBU NEB SCH (20:00)
[2017-03-10] MEDS: ALBUTEROL SULFATE 2.5 MG/3 ML NEBU NEB SCH ×2 (20:13→23:00)
[2017-03-10 20:50] VITALS: BP 141/105
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
--- NOTE | 2017-03-10 23:00 | NUR ---
appears to be asleep. no distress noted.
[2017-03-11] MEDS: ALBUTEROL SULFATE 2.5 MG/3 ML NEBU NEB SCH ×6 (02:37→23:30)
--- NOTE | 2017-03-11 06:00 | NUR ---
slept 5 hours total.
[2017-03-11 07:30] VITALS: BP 142/86
[2017-03-11] MEDS: risperiDONE 0.5 MG TABLET PO SCH ×3 (09:21→17:10)
[2017-03-11] MEDS: DIVALPROEX SPRINKLE 125 MG CAP.SPRINK PO SCH ×2 (09:21→20:39)
[2017-03-11] MEDS: BENZTROPINE MESYLATE 1 MG TABLET PO SCH ×2 (09:21→17:10)
[2017-03-11] MEDS: LISINOPRIL 10 MG TABLET PO SCH (09:22)
[2017-03-11 15:38] VITALS: BP 110/70
[2017-03-11 20:36] VITALS: BP 116/76
--- NOTE | 2017-03-11 23:34 | NUR ---
Pt asleep. No sob noted. HHN tx not given. Charge nurse notified.
[2017-03-12] MEDS: ALBUTEROL SULFATE 2.5 MG/3 ML NEBU NEB SCH ×2 (02:41→09:23)
[2017-03-12 07:30] VITALS: BP_SYST 137; BP_SYST 139; BP_DIAS 67; BP_DIAS 99
[2017-03-12] MEDS: DIVALPROEX SPRINKLE 125 MG CAP.SPRINK PO SCH ×2 (08:42→20:14)
[2017-03-12] MEDS: LISINOPRIL 10 MG TABLET PO SCH (08:42)
[2017-03-12] MEDS: risperiDONE 0.5 MG TABLET PO SCH ×3 (08:42→17:16)
[2017-03-12] MEDS: BENZTROPINE MESYLATE 1 MG TABLET PO SCH ×2 (08:42→17:15)
[2017-03-12] MEDS ORDERED: MAGNESIUM OXIDE 400 MG TABLET PO ONE (09:15)
[2017-03-12 16:11] VITALS: BP 121/88
[2017-03-12 20:30] VITALS: BP 126/90
[2017-03-13 07:30] VITALS: BP 132/97
[2017-03-13] MEDS: BENZTROPINE MESYLATE 1 MG TABLET PO SCH ×2 (08:46→17:30)
[2017-03-13] MEDS: DIVALPROEX SPRINKLE 125 MG CAP.SPRINK PO SCH ×2 (08:46→21:14)
[2017-03-13] MEDS: LISINOPRIL 10 MG TABLET PO SCH (08:46)
[2017-03-13] MEDS: risperiDONE 0.5 MG TABLET PO SCH ×3 (08:46→17:30)
[2017-03-13 12:18] LABS: BILIRUBIN,TOTAL 0.2 mg/dL (0.2-1.0); POTASSIUM 4.9 mmol/L (3.5-5.1); TOTAL PROTEIN, SERUM 6.8 g/dL (6.4-8.2)
[2017-03-13 12:19] LABS: BASOPHILS % (AUTO) 0.5 % (0.0-2.0); EOSINOPHILS # (AUTO) 0.3 K/uL (0.0-0.7); EOSINOPHILS % (AUTO) 4.1 % (0.0-7.0); HEMATOCRIT 43.8 % (40-50); HEMOGLOBIN 14.4 G/DL (14.0-18.0); LYMPHOCYTES # (AUTO) 1.2 K/UL (0.8-4.8); LYMPHOCYTES % (AUTO) 17.5 % (20.5-51.5); MEAN CORPUSCULAR HEMOGLOBIN 29.5 UUG (27.0-31.0); MEAN CORPUSCULAR HGB CONC 33 g/dL (32.0-37.0); MEAN CORPUSCULAR VOLUME 89.8 FL (82.0-92.0); MONOCYTES # (AUTO) 0.6 K/UL (0.1-1.30); MONOCYTES % (AUTO) 9.2 % (0.0-11.0); NEUTROPHILS # (AUTO) 4.9 K/UL (1.8-8.9); NEUTROPHILS % (AUTO) 68.7 % (38.5-71.5); RED BLOOD CELL COUNT(AUTO) 4.87 MIL/UL (4.7-6.1); RED CELL DISTRIBUTION WIDTH 12.9 % (11.5-14.5)
[2017-03-13 12:32] LABS: PLATELET COUNT (AUTO) 226 K/UL (150-450)
[2017-03-13 15:25] VITALS: BP 154/98
--- NOTE | 2017-03-13 16:03 | NUR ---
UR note: Spoke with MORRIS Landon from [facility] [ ; ] and provided clinicals. Authorization# [id number]
[2017-03-13 20:32] VITALS: BP 135/99
--- NOTE | 2017-03-13 22:00 | NUR ---
received to care, visible on unit, pleasant upon approach. compliant with medications and staff direction. interacts minimally with peers. remains focused on discharge. made multiple phone calls. as of 2199, he remains awake, in bed. declined PRN medications. emotional support provided. will continue to monitor closely.
--- NOTE | 2017-03-13 23:00 | NUR ---
appears to be asleep. no distress noted.
--- NOTE | 2017-03-14 01:22 | NUR ---
pt is now awake. c/o anxiety; PRN ativan was given, at this time.
--- NOTE | 2017-03-14 03:00 | NUR ---
appears to be asleep.
--- NOTE | 2017-03-14 06:00 | NUR ---
slept 5 hours, total. is now awake, sitting in the hallway. no distress noted.
[2017-03-14 07:30] VITALS: BP 132/98
[2017-03-14] MEDS: DIVALPROEX SPRINKLE 125 MG CAP.SPRINK PO SCH (08:28)
[2017-03-14] MEDS: risperiDONE 0.5 MG TABLET PO SCH ×3 (08:28→17:04)
[2017-03-14] MEDS: BENZTROPINE MESYLATE 1 MG TABLET PO SCH ×2 (08:28→17:04)
[2017-03-14] MEDS: LISINOPRIL 10 MG TABLET PO SCH (08:28)
--- NOTE | 2017-03-14 11:53 | NUR ---
DC Note: Patient will be discharged to home with [[address] [place], [place],[address]; [phone]] via private transportation at 5:30 pm. Spoke with patients brotherDavid [phone] who stated he will be picking up the patient today. Patient is aware and agreeable with discharge plans. Patient will follow-up with Dr.Gary Treadwell . Patient was encouraged to follow-up with [facility], [address] [place], [place] [id number] at 9:00 am on 02/13/17 for intake screening. Patient was provided with a list of referrals for outpatient treatment. The list included Dr.Ronald Dubon [phone], Dr.Harvey Pedraza [phone], Dr.Mansoor Arguello [phone], Dr.Craig Cherry [phone], and the [facility] health access team [phone]. Patient was also provided with additional resources which included, [facility] [phone], [facility] after suicide [phone], and [facility] [phone].
--- NOTE | 2017-03-14 13:40 | NUR ---
UR note: Called MORRIS Landon from [facility] [ ; ] and left discharge clinicals on confidential voicemail. Authorization# [id number]
[2017-03-14 16:12] VITALS: BP 122/86
--- NOTE | 2017-03-14 17:50 | NUR ---
GPS: Nursing Notes: Discharge Notes: Patient awake and responding to his name, cooperative with nursing care and compliant with his medications, denies any SI/HI, denies any AH/VH, denies any pain or discomfort, denies any SOB, discharge to home at [address] [place] [address] [phone], instructions and prescriptions given to patient, patient's brother David Hargrove picked him up to take him to above address via private vehicle, took all his belongings with him. Patient will follow-up with Dr.Gary Treadwell . Patient was encouraged to follow-up with [facility], [address] [place] [address] at 9:00 am on 02/13/17 for intake screening. Patient was provided with a list of referrals for outpatient treatment. The list included Dr.Ronald Dubon [phone], Dr.Harvey Pedraza [phone], Dr.Mansoor Arguello [phone], Dr.Craig Cherry [phone], and the [facility] health access team [phone]. Patient was also provided with additional resources which included, [facility] [phone], Survivors after suicide [phone], and [facility] [phone].
== END 2017-03-14 17:50 | disposition home or self-care (01) | DRG 885 ==
LOC: GPS 00:18
PROVIDERS: ADMIT Psychiatry & Neurology Psychosomatic Medicine; ATTEND Family Medicine
DX: F29 Unspecified psychosis not due to a substance or known physiological condition (principal); F32.3 Major depressive disorder, single episode, severe with psychotic features; Z73.6 Limitation of activities due to disability; E83.42 Hypomagnesemia; F32.9 Major depressive disorder, single episode, unspecified; E03.9 Hypothyroidism, unspecified; R73.9 Hyperglycemia, unspecified; I11.9 Hypertensive heart disease without heart failure; Z91.5 Personal history of self-harm
CPT/HCPCS: 36415; 80164; 83735; 85025; 93005; 94640; 97001; 97116; 97530